=== PATIENT | female | born 1990 | race Caucasian/White ===

== ENCOUNTER 2022-02-22 15:19 | Emergency (ER) | payer BC ==
[~2022-02-22] VITALS: Ht 172.7 cm; Wt 65.8 kg
--- NOTE | 2022-02-22 18:00 | NUR ---
Pt ambulatory to room 5B, pt states chronic back pain which is worse today. States she was referred to ER by her pain management doctor.
[2022-02-22] MEDS ORDERED: KETOROLAC TROMETHAMINE 60 MG INJ IM ONE ×2 (18:45→18:49)
[2022-02-22] MEDS ORDERED: ONDANSETRON HCL 4 MG TABLET PO ONE (18:45)
[2022-02-22] MEDS ORDERED: HYDROMORPHONE 1 MG/1 ML DISP.SYRIN IM ONE ×2 (18:45→23:30)
[2022-02-22] MEDS ORDERED: ONDANSETRON ODT 4 MG TAB.RAPDIS ONE (18:48)
[2022-02-22] MEDS ORDERED: HYDROMORPHONE 1 MG/1 ML DISP.SYRIN ONE ×2 (18:49→23:39)
[2022-02-22] MEDS ORDERED: HYDROMORPHONE 2 MG/1 ML DISP.SYRIN ONE (18:50)
[2022-02-22] MEDS ORDERED: PROCHLORPERAZINE MALEATE 5 MG TABLET ONE (22:39)
--- NOTE | 2022-02-22 22:45 | NUR ---
Pt. asked for nausea meds. informed Dr. Davey, ordered Compazine 10mg PO. given.
[2022-02-22] MEDS ORDERED: PROCHLORPERAZINE MALEATE 5 MG TABLET PO ONE (23:00)
[2022-02-22] MEDS ORDERED: PROCHLORPERAZINE EDISYLATE 10 MG/2 ML VIAL IM ONE (23:30)
[2022-02-22] MEDS ORDERED: PROCHLORPERAZINE EDISYLATE 10 MG/2 ML VIAL ONE (23:38)
--- NOTE | 2022-02-23 00:43 | NUR ---
remains in bed, asleep at this time. gave all due meds as ordered.
[2022-02-23 02:23] VITALS: BP 118/87
== END 2022-02-23 02:00 | disposition home or self-care (01) ==
LOC: ER 15:19
DX: M62.830 Muscle spasm of back (principal); G89.29 Other chronic pain; M54.9 Dorsalgia, unspecified; R11.2 Nausea with vomiting, unspecified; Z88.2 Allergy status to sulfonamides; G43.909 Migraine, unspecified, not intractable, without status migrainosus
CPT/HCPCS: 99284; 96372 ×2; J1885; J0780; J1170 ×3; J8499; A4663; Q0162

== ENCOUNTER 2022-03-11 08:55 | Emergency (ER) | payer BC ==
[~2022-03-11] VITALS: Ht 172.7 cm; Wt 65.8 kg
[2022-03-11] MEDS ORDERED: HYDROCODONE (09:19)
[2022-03-11] MEDS ORDERED: BACLOFEN (09:19)
[2022-03-11] MEDS ORDERED: LIDOCAINE 5% PATCH TD ONE ×2 (09:26→09:30)
[2022-03-11] MEDS ORDERED: KETOROLAC TROMETHAMINE 15 MG INJ ONE (09:26)
[2022-03-11] MEDS ORDERED: KETOROLAC TROMETHAMINE 15 MG INJ IVP ONE (09:30)
[2022-03-11 09:39] LABS: HEMATOCRIT 36.9 % (31.2-41.9); MEAN CORPUSCULAR HEMOGLOBIN 22.2 uug (24.7-32.8); MEAN CORPUSCULAR VOLUME 71.3 fL (75.5-95.3); PLATELET COUNT (AUTO) 267 K/uL (179-408)
[2022-03-11 09:54] LABS: CREATININE 0.7 mg/dL (0.6-1.3); POTASSIUM 4.1 mmol/L (3.5-5.1)
--- NOTE | 2022-03-11 10:20 | NUR ---
Patient signed consent for CTA after speaking with the ER physician. Saline Lock 20ga started to left forearm x 1 attempt, good blood return, flushed with NS 10ml without difficulty.
[2022-03-11] MEDS ORDERED: ONDANSETRON 4 MG/2 ML VIAL ONE (10:24)
[2022-03-11] MEDS ORDERED: ONDANSETRON 4 MG/2 ML VIAL IV ONE (10:30)
[2022-03-11 10:35] LABS: *URINE HCG, QUAL NEGATIVE (NEGATIVE)
[2022-03-11] MEDS ORDERED: IV NORMAL SALINE 250 ML IV ONE (10:44)
[2022-03-11] MEDS ORDERED: SWABABLE VALVE TRANSFER SET EA MC ONE (10:44)
[2022-03-11] MEDS ORDERED: IOHEXOL 350 100 ML INFUS..BTL ONE (10:44)
--- NOTE | 2022-03-11 12:30 | NUR ---
Pt resting with NAD noted, pending CTA results.
--- NOTE | 2022-03-11 13:00 | NUR ---
Saline Lock removed. Catheter intact and site benign. Pressure and 4x4 gauze applied to site. No bleeding noted.
--- NOTE | 2022-03-11 13:43 | NUR ---
Patient discharged to home in stable condition. Written and verbal after care instructions given. Patient verbalizes understanding of instructions. Stressed follow up or return to ER for worsening s/s.
== END 2022-03-11 13:45 | disposition home or self-care (01) ==
LOC: ER 08:58
DX: R06.02 Shortness of breath (principal); M62.830 Muscle spasm of back; Z20.822 Contact with and (suspected) exposure to COVID-19; R79.1 Abnormal coagulation profile; Z88.2 Allergy status to sulfonamides; G89.29 Other chronic pain; M54.9 Dorsalgia, unspecified
CPT/HCPCS: 99285; 96374; 71275; 71045; 87426; 80048; 84703; 85025; 85379; 36415; 93005; 96372; J1885; J2405; Q9967

== ENCOUNTER 2022-04-22 03:46 | Emergency (ER) | payer BC ==
[~2022-04-22] VITALS: Ht 172.7 cm; Wt 63.5 kg
[~2022-04-22 03:46] MED LIST: BACLOFEN; HYDROCODONE
--- NOTE | 2022-04-22 04:18 | NUR ---
Dr. Orellana at bedside MSE in progress.
[2022-04-22] MEDS ORDERED: DEXAMETHASONE SOD PHOSPHATE 4 MG INJ IV ONE (04:30)
[2022-04-22] MEDS ORDERED: DIAZEPAM 10 MG/2 ML DISP.SYRIN IV ONE (04:30)
[2022-04-22] MEDS ORDERED: KETOROLAC TROMETHAMINE 30 MG INJ IVP ONE (04:30)
[2022-04-22] MEDS ORDERED: DEXAMETHASONE SOD PHOSPHATE 10 MG INJ ONE (04:57)
[2022-04-22] MEDS ORDERED: KETOROLAC TROMETHAMINE 30 MG INJ ONE (04:57)
[2022-04-22] MEDS ORDERED: DIAZEPAM 10 MG/2 ML DISP.SYRIN ONE (04:58)
[2022-04-22] MEDS ORDERED: KETOROLAC TROMETHAMINE 30 MG INJ IM ONE (05:00)
[2022-04-22] MEDS ORDERED: DEXAMETHASONE SOD PHOSPHATE 4 MG INJ IM ONE (05:00)
[2022-04-22] MEDS ORDERED: DIAZEPAM 10 MG/2 ML DISP.SYRIN IM ONE (05:00)
[2022-04-22] MEDS ORDERED: ONDANSETRON 4 MG/2 ML VIAL ONE ×2 (05:28→07:54)
[2022-04-22] MEDS ORDERED: HYDROMORPHONE 1 MG/1 ML DISP.SYRIN ONE ×2 (05:28→07:54)
[2022-04-22] MEDS ORDERED: ONDANSETRON 4 MG/2 ML VIAL IM ONE ×2 (05:30→07:45)
[2022-04-22] MEDS ORDERED: HYDROMORPHONE 1 MG/1 ML DISP.SYRIN IM ONE ×2 (05:30→07:45)
[2022-04-22] MEDS ORDERED: PRED20TA PO (05:47)
--- NOTE | 2022-04-22 06:15 | NUR ---
Called [facility] to page Joleen Raza DNP.
[2022-04-22] MEDS ORDERED: ALPR2TAB7 PO (06:28)
[2022-04-22] MEDS ORDERED: HYDR-3972 PO (06:28)
[2022-04-22] MEDS ORDERED: BACL20TA PO (06:28)
[2022-04-22] MEDS ORDERED: PROP80CA51 PO (06:28)
--- NOTE | 2022-04-22 08:06 | NUR ---
Patient and patient's mother want to leave now after the IM Dilaudid and IM Zofran were given, MD notified.
[2022-04-22] MEDS ORDERED: CYCL10TA9 PO (08:08)
--- NOTE | 2022-04-22 08:11 | NUR ---
Patient discharged to home with mother in stable condition and steady gait. Written and verbal after care instructions given to patient and patient's mother. Patient and mother verbalized understanding and compliance of instructions. Stressed follow up with primary doctor and back-ortho doctor or return to ER for worsening s/s.
[2022-04-22 08:29] VITALS: BP 120/79
== END 2022-04-22 08:11 | disposition home or self-care (01) ==
LOC: ER 03:46
DX: M54.9 Dorsalgia, unspecified (principal); G89.29 Other chronic pain; Z88.2 Allergy status to sulfonamides; Z96.89 Presence of other specified functional implants
CPT/HCPCS: 99284; 96372 ×2; J1100; J3360; J1885; J2405 ×2; J1170 ×2; A4663